=== PATIENT | female | born 1965 | race Hispanic/Latino ===

== ENCOUNTER 2017-02-25 02:27 | Inpatient (IN) | payer MEDICARE, MEDICAID ==
[2017-02-25 02:39] VITALS: BMI 25.8
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
--- NOTE | 2017-02-25 07:48 | PCM.BM ---
<Marga Goldman - Last Filed: 02/25/17 07:45> Treatment Plan Problems - Problems identified on initial assessmt altered thought process Date Initiated: 02/25/17 Time Initiated: 04:00 Assessment reference: NA Status: Active Priority: 1 Agitated behavior Date Initiated: 02/25/17 Time Initiated: 04:00 Assessment reference: NA Status: Active <Rodrigue Turner - Last Filed: 02/25/17 13:18> Treatment Plan Problems - Problems identified on initial assessmt Agitated behavior Date resolved: 02/25/17 Anxiety related to substance abuse Date Initiated: 02/25/17 Time Initiated: 13:19 Assessment reference: NA Status: Active Priority: 2 <Mary Serrano - Last Filed: 02/25/17 14:13> - Diagnosis (1) Depression Status: Chronic Interventions: Psychoeducation Psychopharmacology/adjustment of medications as needed/ monitoring possible side effects Evaluate pt on daily basis Compliance with medications and follow up appointments Suicide and homicide risk assessment and prevention Relapse prevention Reduction of symptoms Improve functional status Family involvement As outpatient: cognitive behavioral therapy 02/25/17 14:12 (2) Drug induced hallucinations Status: Acute Interventions: Provide safety Monitoring for presence of withdrawal symptoms Medical detoxification if necessary Pharmacotherapy for alcohol/benzos/opioid dependence Maintaining sobriety Relapse prevention Possible rehabilitation Motivational interviewing 12-step programs: AA meetings Pt will be seen by medical team as needed Medications will be confirmed and resumed Additional consultation by specialists as needed Lab work as needed (CBC, CMP, TSH, free T4, UA, Urine test for females as needed) CXR as needed EKG Physical therapy valuation as needed <Maria Teresa Sweet - Last Filed: 02/26/17 16:32> - Diagnosis (1) Unspecified psychosis Status: Acute Interventions: 02/26/17 16:23 Psychoeducation/psychotherapy Psychopharmacology/adjustment of medications as needed/ monitoring possible side effects Evaluate pt on daily basis Compliance with medications and follow up appointments Long acting medication if pt is noncompliant with pill form Suicide and homicide risk assessment and prevention, coping strategies, safety plan Relapse prevention Reduction of symptoms Improve functional status Possible assertive community treatment Cognitive behavioral therapy Family involvement Possible social skill training as outpatient (2) Substance or medication-induced psychotic disorder Status: Acute Interventions: 02/26/17 16:23 Pt will be seen by medical team as needed Medications will be confirmed and resumed Additional consultation by specialists as needed Lab work as needed (CBC, CMP, TSH, free T4, UA, Urine test for females as needed) CXR as needed EKG Physical therapy evaluation as needed <Shelby Jeronimo - Last Filed: 03/01/17 10:59> Family Contact Family involvement: Family/SO is involved Family contact: Patient agrees to contact
[2017-02-25 08:40] LABS: GLUCOSE,FASTING 99 mg/dL (65-110); HDL CHOLESTEROL 54 mg/dL (29-60)
[2017-02-25 08:51] LABS: LDL CHOLESTEROL 51 mg/dL (0-129)
[2017-02-25] MEDS: Divalproex 250 mg DR (BID formulation) PO SCH ×2 (12:49→22:30)
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
[2017-02-26] MEDS: Divalproex 250 mg DR (BID formulation) PO SCH ×2 (09:23→21:19)
[2017-02-26] MEDS ORDERED: Morphine 30 mg SR Tab PO ONE (13:42)
[2017-02-26] MEDS ORDERED: oxyCODONE 30 mg Immediate Release Tab PO ONE (13:42)
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
[2017-02-26] MEDS: Morphine 30 mg SR Tab PO SCH (17:35)
[2017-02-26] MEDS: oxyCODONE 30 mg Immediate Release Tab PO PRN (21:20)
[2017-02-26] MEDS ORDERED: Bacitracin Ointment 30 GM TUBE TOP SCH (22:00)
--- NOTE | 2017-02-27 02:02 | CON ---
DATE: HISTORY OF PRESENT ILLNESS: The patient is a 51-year-old who was found wondering on the street, was confused and disoriented, so was brought to Emergency Room for further evaluation. She was initially admitted in [facility] for confusion and then transferred to [facility] for further management. There is no significant medical history. She denies nausea, vomiting, or diarrhea. No history of chest pain. No shortness of breath. No dizziness. No back pain. No headache. She does have history of back pain. She states she has multiple surgeries done, for that she is on high dose of oxycodone. PAST PSYCHIATRIC HISTORY: Her significant past psych history is bipolar disorder. ALLERGIES: SHE IS NOT ALLERGIC TO ANY MEDICATION. MEDICATIONS AT HOME: She takes oxycodone, but does not know the dose. SOCIAL HISTORY: She states she is single. Lives by herself. Does not work. She is disabled. She currently smoke. She does admits using drugs. REVIEW OF SYSTEMS: She complained of feeling sleepy and lethargic. PHYSICAL EXAMINATION: GENERAL: She is awake and alert and able to answer simple questions. VITAL SIGNS: She is afebrile, pulse 80, respirations 18, and blood pressure 142/76. LUNGS: Bilateral fair airflow. No rhonchi or crackle. HEART: S1 and S2 audible. ABDOMEN: Soft and nontender. No rebound. No guarding. NEUROLOGIC: She is awake, alert, and able to communicate. She has some rash on her forehead and on the upper lip is chapped and excoriated. LABORATORY DATA: Fasting blood sugar is 99, triglyceride 200, and total cholesterol 139. Her TSH is 0.60 and T4 is 1.82. Her RPR is negative. ASSESSMENT: 1. Bipolar disorder. 2. Anxiety disorder. 3. Chronic low back pain. PLAN: Currently, the patient is on multiple psych medication. She will be started on Bactroban. She is on oxycodone 30 mg four times daily p.r.n. as recommended by psychiatrist. Currently, the patient has no active medical issue. Psych medications will be adjusted by psychiatrist. Steve Forman MD
[2017-02-27] MEDS: oxyCODONE 30 mg Immediate Release Tab PO PRN ×2 (06:42→22:49)
[2017-02-27] MEDS: Divalproex 250 mg DR (BID formulation) PO SCH ×2 (09:19→22:00)
[2017-02-27] MEDS: Morphine 30 mg SR Tab PO SCH ×3 (09:19→17:52)
--- NOTE | 2017-02-27 16:43 | CP.PCM.PN ---
Subjective - Date & Time of Evaluation Date of Evaluation: 02/27/17 Time of Evaluation: 16:24 - Subjective Subjective: House Physician Resident Cale Mendes, PGY-2 IM Paged for patient complaining of shooting pain in left arm and chest, but not in acute distress. Charting reviewed, no cardiac history or HTN/HLD/DM noted. Does have active tobacco use hx. Went to examine patient, who was sleeping comfortably on right side in room. No acute distress at rest, or when awakened. Denies family or personal cardiac hx, later amended that her father of a massive NH in his late 70's, but unable to pinpoint when, and denies any cardiac disease risk factors in father (i.e. HTN, HLD, DM). Pain in left arm reproducible on palpation and during muscle strength testing. Muscle strength 5/5 bilaterally in flexion and extension. Tenderness most prominent immediately proximal to lateral left elbow. No masses, fluctuance, erythema, or gross physical abnormality palpated at the site of tenderness. Patient denies chest pain statically or with palpation along left anterior and lateral rib cage. Also denies shortness of breath or painful respirations. Given tobacco abuse hx and unclear family cardiac history, trop and EKG ordered. If both negative, then patient will have ALY score of 0, low cardiac risk, no further workup will be needed. Objective - Vital Signs/Intake and Output Vital Signs (last 24 hours): Temp Pulse Resp BP Pulse Ox 98.6 F 98 H 20 134/96 H 100 02/27/17 07:18 02/27/17 07:18 02/27/17 07:18 02/27/17 07:18 02/25/17 03:04 - Medications Medications: Current Medications Alprazolam (Xanax) 1 mg PO TID KATHARINE PRN Reason: Protocol Last Admin: 02/27/17 12:42 Dose: 1 mg Divalproex Sodium (Depakote Dr (*Bid*)) 250 mg PO AMHS KATHARINE PRN Reason: Protocol Last Admin: 02/27/17 09:19 Dose: 250 mg Haloperidol (Haldol) 3 mg PO Q6 PRN; Protocol PRN Reason: Agitation Last Admin: 02/25/17 04:26 Dose: 3 mg Haloperidol Lactate (Haldol) 3 mg IM Q6 PRN; Protocol PRN Reason: severe agitation Ibuprofen (Motrin Tab) 600 mg PO Q6H PRN PRN Reason: pain Last Admin: 02/26/17 12:58 Dose: 600 mg Lorazepam (Ativan) 1 mg PO Q6 PRN; Protocol PRN Reason: Agitation Last Admin: 02/27/17 06:43 Dose: 1 mg Lorazepam (Ativan) 1 mg IM Q6H PRN; Protocol PRN Reason: severe agitation Morphine Sulfate (Morphine Extended Release Tab) 60 mg PO TID [facility] Last Admin: 02/27/17 12:42 Dose: 60 mg Mupirocin (Bactroban Ointment) 0 gm TOP BID [facility] Last Admin: 02/27/17 09:24 Dose: 1 u Nicotine (Nicoderm Cq) 1 patch TD DAILY [facility] Last Admin: 02/27/17 09:18 Dose: 1 patch Oxycodone HCl (Oxycodone Immediate Release Tab) 30 mg PO QID PRN PRN Reason: Pain, severe (8-10) Last Admin: 02/27/17 06:42 Dose: 30 mg Pregabalin (Lyrica) 100 mg PO TID [facility] Last Admin: 02/27/17 12:42 Dose: 100 mg Quetiapine Fumarate (Seroquel) 100 mg PO HS KATHARINE PRN Reason: Protocol Last Admin: 02/26/17 21:21 Dose: 100 mg Zolpidem Tartrate (Ambien) 5 mg PO HS PRN; Protocol PRN Reason: Insomnia Last Admin: 02/26/17 21:19 Dose: 5 mg - Constitutional Appears: Non-toxic, No Acute Distress, Older Than Stated Age - Head Exam Head Exam: ATRAUMATIC, NORMAL INSPECTION, NORMOCEPHALIC - Eye Exam Eye Exam: EOMI, Normal appearance. absent: Conjunctival injection, Scleral icterus - ENT Exam ENT Exam: Mucous Membranes Moist - Neck Exam Neck Exam: Full ROM - Respiratory Exam Respiratory Exam: Clear to Ausculation Bilateral, NORMAL BREATHING PATTERN. absent: Accessory Muscle Use, Chest Wall Tenderness, Decreased Breath Sounds, Prolonged Expiratory Phase, Rales, Rhonchi, Wheezes, Respiratory Distress - Cardiovascular Exam Cardiovascular Exam: REGULAR RHYTHM, RRR, +S1, +S2. absent: Bradycardia, Tachycardia, Irregular Rhythm, JVD, +S4 - Extremities Exam Additional comments: +2 radial pulses 5/5 bilateral UE strength no gross deformity palpated in left UE at site of tenderness to palpation ( proximal to lateral elbow) - Neurological Exam Neurological Exam: Alert, Awake - Psychiatric Exam Psychiatric exam: Normal Affect, Normal Mood - Skin Skin Exam: Dry, Intact, Normal Color, Warm Assessment and Plan - Assessment and Plan (Free Text) Assessment: EKG and trop ordered, will f/u if negative, ALY score of 0, no further workup required likely musculoskeletal pain, already has appropriate pain control with current NSAID and Morphine orders
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
[2017-02-28] MEDS: Morphine 30 mg SR Tab PO SCH ×3 (09:07→17:50)
[2017-02-28] MEDS: Divalproex 250 mg DR (BID formulation) PO SCH ×2 (09:11→21:32)
[2017-02-28] MEDS: oxyCODONE 30 mg Immediate Release Tab PO PRN (11:20)
--- NOTE | 2017-02-28 12:31 | CARD ---
APPROVED REPORT EKG Measurement Heart [id number] <Conclusion> Normal sinus rhythm Normal ECG
[2017-02-28] MEDS ORDERED: oxyCODONE 20 mg Immediate Release Tab PO PRN (13:42)
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
[2017-03-01 07:23] VITALS: O2SAT 20
[2017-03-01] MEDS: Morphine 30 mg SR Tab PO SCH ×3 (08:54→17:53)
--- NOTE | 2017-03-01 10:29 | CON ---
DATE: 03/01/2017 HISTORY OF PRESENT ILLNESS: The patient is being seen on 03/01/[address] Forman and Dr. Morel for back pain and having multiple back surgeries and I am seeing her at the bedside in her room 514, bed 1. The patient was asked about back surgery and she said she had back fusion with instrumentation and is scheduled for another back surgery because of her loosened hardware device, but right now, she can move appropriately and can sit up without assistance. There is extremely good range of motion of her hips, knees, and lumbosacral spine. She can sit up well and even can bend forward. She does have multiple truncal laxity, which contributes to her good range of motion of her back and her joints of upper and lower extremities. I palpated the scar, which goes proximally from the upper lumbar spine down to the sacrum, fusion with instrumentation of her lumbar spine and states she can get up okay and walk with a walker, but she likes to use a wheelchair. We will try to get her physical therapy for post-laminectomy syndrome and post-fusion of her lumbar spine to keep her mobile, so we are going to order an x-ray of her lumbar spine and pelvis and write for therapy for back-stabilizing exercises, and ambulation with a walker for her post-laminectomy syndrome and post-fusion surgery of her lumbar spine. Waqas Rivera DO
--- NOTE | 2017-03-01 10:38 | PCM.PYCHPN ---
Psychiatric Progress Note - Psychiatric Progress Note Patient seen today, length of contact: 25 minutes Patient Chief Complaint: "feeling better than I have in ages, I don't want to disappear anymore" Problems Identified/Issues Discussed: I reviewed assessment and recent notes. I met with patient at bedside. She is superficially cooperative and oriented x3. Grooming is good. Affect is elevated and patient is quite talkative but not pressured. She reports "feeling better than I have in ages, I don't want to disappear anymore". Reports feeling hopeful and "in control over my brain". She recalls having hallucinations prior to admission however these have remitted. Her thought process is coherent but overinclusive and scattered/tangential at times. She is pleasant and thankful. Feels the medications are working well for her and she denies side effects, discomfort or pain. Staff notes indicate that patient has been in fair but tenuous control. Can be intrusive, dramatic and manipulative. She has required redirection for these reasons. There were no major behavioral issues overnight. Diagnostic Results: Psychosis NOS Rule out substance-induced psychosis, patient was on higher dose of pain medication most likely patient was not taking medication as it was prescribed Rule out bipolar disorder Medication Change: Yes (Seroquel increased) Medical Record Reviewed: Yes Mental Status Examination - Cognitive Function Orientation: Person, Situation Memory: Impaired Attention: Poor Concentration: Poor Association: Loose Fund of Knowledge: Poor - Mood Mood: Euphoric (elevated, not pressured) - Affect Affect: Broad - Speech Speech: Appropriate - Formal Thought Process Formal Thought Process: Hallucinations (denies), Delusions (none elicited), Paranoia, Loosening of associations, Circumstantial - Suicidal Ideation Suicidal Ideation: No - Homicidal Ideation Homicidal Ideation: No Goal/Treatment Plan - Goal/Treatment Plan Need for Continued Stay: Remain at risks for inpatient hospitalization, Severe depression anxiety, Discharge may exacerbated symptoms, Severe functional impairment Progress Toward Problem(s) and Goals/Treatment Plan: * c/w current tx and plan * c/w Depakote 500 mg po AM/HS, check VPA level * c/w Seroquel 200 mg HS * c/w xanax 1 mg po TID for anxiety * No new labs thus far * Vitals reviewed and noted below: Selected Entries 02/27/17 02/27/17 02/28/17 07:18 18:00 07:16 Temperature 98.6 F 97.9 F Pulse Rate 98 H 82 86 Respiratory 20 20 Rate Blood Pressure 134/96 H 124/79 138/76 02/28/17 16:00 Temperature Pulse Rate 82 Respiratory Rate Blood Pressure 117/82 Estimated Date of D/C: 03/08/17 (we'll monitor patient closely)
[2017-03-01] MEDS: Divalproex 250 mg DR (BID formulation) PO SCH ×2 (12:10→21:19)
--- NOTE | 2017-03-01 12:19 | RAD ---
PROCEDURE: Radiographs of the pelvis. HISTORY: lt hip rain fusion sacrum COMPARISON: None. FINDINGS: BONES: Pelvic Bones: Unremarkable. Hips: Grossly unremarkable. JOINTS: Sacroiliac Joints: Unremarkable. Pubic Symphysis: Unremarkable. OTHER FINDINGS: None. IMPRESSION: Unremarkable radiographs of the pelvis.
--- NOTE | 2017-03-01 12:21 | RAD ---
PROCEDURE: Radiographs of the Lumbar Spine. HISTORY: back fusion COMPARISON: No prior. FINDINGS: BONES: Normal alignment. No listhesis. No fracture. DISC SPACES: There has been intradiscal and intrapedicular fusion at L3-4 and L4-5. There is disc degeneration at L1-2 and L2-3. OTHER FINDINGS: None. IMPRESSION: There has been intradiscal and intrapedicular fusion at L3-4 and L4-5. There is disc degeneration at L1-2 and L2-3.
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
--- NOTE | 2017-03-02 08:59 | PCM.PYCHPN ---
Psychiatric Progress Note - Psychiatric Progress Note Patient seen today, length of contact: 25 minutes Patient Chief Complaint: "feeling better than I have in ages, I don't want to disappear anymore" Problems Identified/Issues Discussed: I reviewed recent notes and met with patient at bedside. She is superficially cooperative and oriented x3. Grooming is good. Affect is still elevated and patient is talkative but not pressured. She still reports improvement in symptoms and feels very hopeful. She recalls having hallucinations prior to admission however these have remitted. Her thought process is coherent but overinclusive and tangential. She is pleasant and thankful. Feels the medications are "great and working well". She denies new side effects, discomfort or pain. Staff notes indicate that patient has been in fair but tenuous control. Can be intrusive, dramatic and manipulative. She has required redirection for these reasons. Nonetheless she is appearing less hyper and demanding than before. There were no major behavioral issues overnight. Diagnostic Results: Psychosis NOS Rule out substance-induced psychosis, patient was on higher dose of pain medication most likely patient was not taking medication as it was prescribed Rule out bipolar disorder Medication Change: Yes (Seroquel increased) Medical Record Reviewed: Yes Mental Status Examination - Cognitive Function Orientation: Person, Situation Memory: Impaired Attention: WNL Concentration: Poor Association: Loose Fund of Knowledge: Poor - Mood Mood: Euphoric (elevated, not pressured) - Affect Affect: Broad - Speech Speech: Appropriate - Formal Thought Process Formal Thought Process: Hallucinations (denies), Delusions (none elicited), Paranoia (improving), Loosening of associations, Circumstantial - Suicidal Ideation Suicidal Ideation: No - Homicidal Ideation Homicidal Ideation: No Goal/Treatment Plan - Goal/Treatment Plan Need for Continued Stay: Remain at risks for inpatient hospitalization, Severe depression anxiety, Discharge may exacerbated symptoms, Severe functional impairment Progress Toward Problem(s) and Goals/Treatment Plan: * c/w current tx and plan * c/w Depakote 500 mg po AM/HS. VPA noted below: 03/01/17 12:20 Valproic Acid 75 * c/w Seroquel 200 mg HS * c/w xanax 1 mg po TID for anxiety * Appreciate f/u by Dr. Rivera and Dr. Hart on 03/01/16~please see medical notes for more details. * 03/01/17 Pelvic Xray: wnl. Lumbar Xray: There has been intradiscal and intrapedicular fusion at L3-4 and L4-5. There is disc degeneration at L1-2 and L2-3. * Vitals reviewed and noted below: 03/01/17 03/01/17 03/01/17 07:22 07:24 10:00 Temperature 98.0 F 98.0 F 97.2 F L Pulse Rate 92 H 92 H 76 Respiratory 20 16 Rate Blood Pressure 119/82 Estimated Date of D/C: 03/08/17 (we'll monitor patient closely)
[2017-03-02] MEDS: Morphine 30 mg SR Tab PO SCH ×3 (09:23→18:35)
[2017-03-02] MEDS: Divalproex 250 mg DR (BID formulation) PO SCH ×2 (09:25→21:02)
--- NOTE | 2017-03-02 12:50 | CT ---
PROCEDURE: CT Thoracic Spine without contrast HISTORY: radiculopathy COMPARISON: None. TECHNIQUE: Axial computed tomography images were obtained of the thoracic spine without intravenous contrast. Coronal and sagittal reformatted images were created and reviewed. Radiation dose: Total exam DLP = mGy-cm. This CT exam was performed using one or more of the following dose reduction techniques: Automated exposure control, adjustment of the mA and/or kV according to patient size, and/or use of iterative reconstruction technique. FINDINGS: VERTEBRAE: Unremarkable. No fracture. Normal alignment. DISCS/SPINAL CANAL/NEURAL FORAMINA: Mild lower thoracic disc space narrowing and degenerative disc disease. No significant stenosis. PARASPINAL SOFT TISSUES: Unremarkable. OTHER FINDINGS: Unremarkable. IMPRESSION: Mild lower thoracic disc space narrowing and degenerative disc disease. No significant stenosis.
--- NOTE | 2017-03-02 13:09 | CT ---
PROCEDURE: CT Lumbar Spine without contrast HISTORY: radiculopathy COMPARISON: None. TECHNIQUE: Axial computed tomography images were obtained of the lumbar spine without the use of intravenous contrast. Coronal and sagittal reformatted images were created and reviewed. Radiation dose: Total exam DLP = mGy-cm. This CT exam was performed using one or more of the following dose reduction techniques: Automated exposure control, adjustment of the mA and/or kV according to patient size, and/or use of iterative reconstruction technique. FINDINGS: There is a dextroscoliosis. Patient status post pedicle fixation surgery with laminectomies from L3 through L5. Multilevel severe degenerative disc disease is noted with upper lumbar vacuum disc phenomenon and associated sclerotic changes of the T12 through L1 vertebral bodies. No significant disc herniation or central canal stenosis is observed. There is no significant foraminal stenosis. No gross prevertebral paraspinal soft tissue abnormality is observed. IMPRESSION: Status post L1 through L3 pedicle fixation surgery with laminectomy defects and postsurgical changes. Severe degenerative disc disease and dextroscoliosis. No significant foraminal or central canal stenosis.
[2017-03-03] MEDS: Morphine 30 mg SR Tab PO SCH ×3 (09:17→18:17)
[2017-03-03] MEDS: Divalproex 250 mg DR (BID formulation) PO SCH ×2 (09:18→21:38)
--- NOTE | 2017-03-03 09:29 | PCM.PYCHPN ---
Psychiatric Progress Note - Psychiatric Progress Note Patient seen today, length of contact: 25 minutes Patient Chief Complaint: "feeling better" Problems Identified/Issues Discussed: I reviewed recent notes and met with patient at bedside. She is superficially cooperative and oriented x3. Grooming is good. Affect is still elevated and patient is talkative but not pressured. She still reports improvement in symptoms and feels very hopeful. . She recalls having hallucinations prior to admission however these have remitted. Believes psychiatric medications are working well. Her thought process is coherent, overinclusive and tangential at times. She is pleasant though still complains of pain. She denies new side effects or discomfort. Staff notes indicate that patient has been in fair control. Appears to be drowsy during the day though patient denies. This could be secondary to the effects of her pain medications. Prior staff notes indicate that patient can be intrusive, dramatic and manipulative. She has required redirection and has been improving in this regard over the weekend. Overall, she appears less hyper and demanding than before. Interacting well with staff and peers. There were no major behavioral issues over the weekend Diagnostic Results: Psychosis NOS Rule out substance-induced psychosis, patient was on higher dose of pain medication most likely patient was not taking medication as it was prescribed Rule out bipolar disorder Medication Change: Yes (Seroquel increased) Medical Record Reviewed: Yes Mental Status Examination - Cognitive Function Orientation: Person, Situation Memory: Impaired Attention: WNL Concentration: Poor Association: Loose Fund of Knowledge: Poor - Mood Mood: Euphoric (elevated, not pressured) - Affect Affect: Broad - Speech Speech: Appropriate - Formal Thought Process Formal Thought Process: Hallucinations (denies), Delusions (none elicited), Paranoia (improving), Loosening of associations (improving), Circumstantial - Suicidal Ideation Suicidal Ideation: No - Homicidal Ideation Homicidal Ideation: No Goal/Treatment Plan - Goal/Treatment Plan Need for Continued Stay: Remain at risks for inpatient hospitalization, Severe depression anxiety, Discharge may exacerbated symptoms, Severe functional impairment Progress Toward Problem(s) and Goals/Treatment Plan: * c/w current tx and plan * c/w Depakote 500 mg po AM/HS. VPA noted below: 03/01/17 12:20 Valproic Acid 75 * c/w Seroquel 200 mg HS * c/w xanax 1 mg po TID for anxiety * Vitals reviewed and noted below: 03/01/17 03/01/17 03/01/17 07:22 07:24 10:00 Temperature 98.0 F 98.0 F 97.2 F L Pulse Rate 92 H 92 H 76 Respiratory 20 16 Rate Blood Pressure 119/82 03/02/17 08:18 Temperature Pulse Rate 86 Respiratory 20 Rate Blood Pressure 134/80 * Appreciate f/u by Dr. Rivera and Dr. Hart on 03/01/16~please see medical notes for more details. IMAGING STUDY RESULTS * 03/01/17 Pelvic Xray: wnl. * 03/01/17 Lumbar Xray: There has been intradiscal and intrapedicular fusion at L3 -4 and L4-5. There is disc degeneration at L1-2 and L2-3. * 03/02/[address]: unremarkable. No fracture. Normal alignment. * 03/02/[address]: There is dextroscoliosis. Patient status post pedicle fixation surger with laminiectomies from L3 through L5. Multilevel severe degenerative disc disease is noted with upper lumbar vacuum disc phenomenom and associated sclerotic changes of the T12 through L1 vertebral bodies. No significant disc herniation or central canal. Estimated Date of D/C: 03/08/17 (we'll monitor patient closely)
--- NOTE | 2017-03-04 08:46 | CP.PCM.PN ---
Subjective - Date & Time of Evaluation Date of Evaluation: 03/04/17 Time of Evaluation: 08:42 - Subjective Subjective: Ms. Crook was seen and examined at the bedside. She is alert, but very sleepy. She denies any pain, headache, dizziness, lightheadedness, nausea, or vomiting. She states of receiving her routine pain medications which made her more sleepy. Ct of the lumbar showed severe degenerative disc disease and CT of the thoracic also showed degenerative disease. There was no untoward events overnight. Objective - Vital Signs/Intake and Output Vital Signs (last 24 hours): Temp Pulse Resp BP Pulse Ox 97.6 F 88 18 131/73 20 L 03/04/17 06:53 03/04/17 06:53 03/04/17 06:53 03/04/17 06:53 03/01/17 07:22 - Medications Medications: Current Medications Alprazolam (Xanax) 1 mg PO TID [facility] PRN Reason: Protocol Last Admin: 03/03/17 18:30 Dose: Not Given Divalproex Sodium (Depakote Dr (*Bid*)) 500 mg PO AMHS [facility] PRN Reason: Protocol Last Admin: 03/03/17 21:38 Dose: 500 mg Haloperidol (Haldol) 3 mg PO Q6 PRN; Protocol PRN Reason: Agitation Last Admin: 03/03/17 21:38 Dose: 3 mg Haloperidol Lactate (Haldol) 3 mg IM Q6 PRN; Protocol PRN Reason: severe agitation Ibuprofen (Motrin Tab) 600 mg PO Q6H PRN PRN Reason: pain Last Admin: 02/26/17 12:58 Dose: 600 mg Lorazepam (Ativan) 1 mg PO Q6 PRN; Protocol PRN Reason: Agitation Last Admin: 03/01/17 15:27 Dose: 1 mg Lorazepam (Ativan) 1 mg IM Q6H PRN; Protocol PRN Reason: severe agitation Morphine Sulfate (Morphine Extended Release Tab) 60 mg PO TID [facility] Last Admin: 03/03/17 18:17 Dose: Not Given Mupirocin (Bactroban Ointment) 0 gm TOP BID [facility] Last Admin: 03/03/17 16:16 Dose: 1 u Nicotine (Nicoderm Cq) 1 patch TD DAILY [facility] Last Admin: 03/03/17 09:19 Dose: 1 patch Oxycodone HCl (Oxycodone Immediate Release Tab) 20 mg PO TID PRN PRN Reason: Pain, severe (8-10) Pregabalin (Lyrica) 100 mg PO TID [facility] Last Admin: 03/03/17 18:16 Dose: Not Given Quetiapine Fumarate (Seroquel) 200 mg PO HS [facility] PRN Reason: Protocol Last Admin: 03/03/17 21:38 Dose: 200 mg Zolpidem Tartrate (Ambien) 5 mg PO HS PRN; Protocol PRN Reason: Insomnia Last Admin: 03/03/17 21:38 Dose: 5 mg - Constitutional Appears: No Acute Distress - Head Exam Head Exam: NORMAL INSPECTION - Neurological Exam Neurological Exam: Awake Neuro motor strength exam: Left Upper Extremity: 5, Right Upper Extremity: 5, Left Lower Extremity: 5, Right Lower Extremity: 5 Additional comments: Pt is leepy , but able to follow simple commands such as raising her bilateral upper and lower extremities. Assessment and Plan (1) Lumbar back pain with radiculopathy affecting left lower extremity Assessment & Plan: Case discussed with Dr. Hart, continue all current medical regimen and please refer to her primary physician the degenerative disease of her lumbar and thoracic areas. Status: Acute (2) Lumbar back pain with radiculopathy affecting right lower extremity Status: Acute
[2017-03-04] MEDS: Morphine 30 mg SR Tab PO SCH ×3 (09:46→17:24)
[2017-03-04] MEDS: Divalproex 250 mg DR (BID formulation) PO SCH ×2 (09:46→23:49)
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
[2017-03-04] MEDS: QUEtiapine 300 mg XR Tab PO SCH (23:49)
[2017-03-05] MEDS: Divalproex 250 mg DR (BID formulation) PO SCH ×2 (10:04→21:25)
[2017-03-05] MEDS: Morphine 30 mg SR Tab PO SCH ×3 (12:14→17:39)
[2017-03-05] MEDS ORDERED: oxyCODONE 10 mg Immediate Release Tab PO PRN (16:33)
--- NOTE | 2017-03-05 16:36 | PCM.BM ---
Treatment Plan Problems - Problems identified on initial assessmt altered thought process Date Initiated: 02/25/17 Time Initiated: 04:00 Date resolved: 03/05/17 Assessment reference: NA Status: Monitor Priority: 1 Agitated behavior Date Initiated: 02/25/17 Time Initiated: 04:00 Date resolved: 03/04/17 Assessment reference: NA Status: Monitor Anxiety related to substance abuse Date Initiated: 03/04/17 Time Initiated: 11:00 Assessment reference: NA Status: Active Priority: 2 - Milieu Protocol Milieu Narrative: Milieu/structure/supportive therapy Medical consult appreciated, see medical team note for more detailed info SW consultation for discharge plan and social issues Med management will increase XL Seroquel 300 mg at the night time for psychosis and mood stabilization Depakote will be continued for mood stabilization to 500 twice a day Xanax was resumed 1 mg 3 times a day scheduled When necessary of Ativan in case or anxiety The medications confirmed by pharmacy and resumed morphine ED 60mg po tid scheduled oxycodone will be decreased to 20mg po tid (pt was on 30mg po qid prn) For insomnia Ambien 5 mg as needed Medical consultation was called, appreciated PT consult appreciated Neurology consult appreciated Pain mng consult was called, but patient was not evaluated by them Orthopedic consult appreciated We'll consider pain management consultation physical therapy evaluation Family involvement Follow up on labs Will monitor closely SW evaluation for d/c planning Pt was educated about risk/benefits and alternatives of medications, coping strategies (safety plan, suicide prevention), relapse prevention, importance of follow up with psychiatrist and therapist, stay away from drugs/alcohol/smoking Family Contact Family involvement: Family/SO is involved Family contact: Patient agrees to contact Discharge/Continuing Care - Treatment Team Participation Patient/Family/SO Statement: Milieu/structure/supportive therapy Medical consult appreciated, see medical team note for more detailed info SW consultation for discharge plan and social issues Med management will increase XL Seroquel 300 mg at the night time for psychosis and mood stabilization Depakote will be continued for mood stabilization to 500 twice a day Xanax was resumed 1 mg 3 times a day scheduled When necessary of Ativan in case or anxiety The medications confirmed by pharmacy and resumed morphine ED 60mg po tid scheduled oxycodone will be decreased to 20mg po tid (pt was on 30mg po qid prn) For insomnia Ambien 5 mg as needed Medical consultation was called, appreciated PT consult appreciated Neurology consult appreciated Pain mng consult was called, but patient was not evaluated by them Orthopedic consult appreciated We'll consider pain management consultation physical therapy evaluation Family involvement Follow up on labs Will monitor closely SW evaluation for d/c planning Pt was educated about risk/benefits and alternatives of medications, coping strategies (safety plan, suicide prevention), relapse prevention, importance of follow up with psychiatrist and therapist, stay away from drugs/alcohol/smoking Treatment Plan Review - Problem altered thought process Time Initiated: 04:00 Agitated behavior Time Initiated: 04:00 Anxiety related to substance abuse Time Initiated: 13:19
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
[2017-03-05] MEDS: QUEtiapine 300 mg XR Tab PO SCH (21:25)
--- NOTE | 2017-03-06 07:37 | CP.PCM.PN ---
Subjective - Date & Time of Evaluation Date of Evaluation: 03/06/17 Time of Evaluation: 07:33 - Subjective Subjective: Ms. Crook was seen and examined at the bedside. She is alert, responsive to all stimuli, but very sleepy. She is able to answer questions appropriately. She denies any headache, dizziness, numbness, weakness. She uses wheelchair to mobilize around the unit, but able to walk to the bathroom with steady gait with kyphosis posture. CT of the lumbar and thoracic showed mild thoracic area narrowing, no significant stenosis, status post L1-L3 pedicle fixation surgery with laminectomy defects and processed surgical changes. Severe degenerative disc disease and dextroscoliosis, no significant foraminal or central canal stenosis. There was no untoward events overnight. Objective - Vital Signs/Intake and Output Vital Signs (last 24 hours): Temp Pulse Resp BP Pulse Ox 97.6 F 72 18 97/61 L 20 L 03/05/17 10:00 03/05/17 10:00 03/05/17 10:00 03/05/17 07:13 03/01/17 07:22 - Medications Medications: Current Medications Alprazolam (Xanax) 1 mg PO TID [facility] PRN Reason: Protocol Last Admin: 03/05/17 17:40 Dose: 1 mg Divalproex Sodium (Depakote Dr (*Bid*)) 500 mg PO [facility] PRN Reason: Protocol Last Admin: 03/05/17 21:25 Dose: 500 mg Haloperidol (Haldol) 3 mg PO Q6 PRN; Protocol PRN Reason: Agitation Last Admin: 03/03/17 21:38 Dose: 3 mg Haloperidol Lactate (Haldol) 3 mg IM Q6 PRN; Protocol PRN Reason: severe agitation Ibuprofen (Motrin Tab) 600 mg PO Q6H PRN PRN Reason: pain Last Admin: 03/05/17 23:40 Dose: 600 mg Lorazepam (Ativan) 1 mg PO Q6 PRN; Protocol PRN Reason: Agitation Last Admin: 03/01/17 15:27 Dose: 1 mg Lorazepam (Ativan) 1 mg IM Q6H PRN; Protocol PRN Reason: severe agitation Morphine Sulfate (Morphine Extended Release Tab) 60 mg PO TID [facility] Last Admin: 03/05/17 17:39 Dose: 60 mg Mupirocin (Bactroban Ointment) 0 gm TOP BID [facility] Last Admin: 03/05/17 17:39 Dose: 1 u Nicotine (Nicoderm Cq) 1 patch TD DAILY [facility] Last Admin: 03/05/17 08:28 Dose: 1 patch Oxycodone HCl (Oxycodone Immediate Release Tab) 10 mg PO TID PRN PRN Reason: Pain, severe (8-10) Pregabalin (Lyrica) 100 mg PO TID [facility] Last Admin: 03/05/17 17:40 Dose: 100 mg Quetiapine Fumarate (Seroquel Xr) 300 mg PO HS [facility] PRN Reason: Protocol Last Admin: 03/05/17 21:25 Dose: 300 mg Zolpidem Tartrate (Ambien) 5 mg PO HS PRN; Protocol PRN Reason: Insomnia Last Admin: 03/05/17 21:25 Dose: 5 mg - Constitutional Appears: No Acute Distress - Head Exam Head Exam: NORMAL INSPECTION - Neurological Exam Neurological Exam: Alert, Awake Neuro motor strength exam: Left Upper Extremity: 4, Right Upper Extremity: 4, Left Lower Extremity: 4, Right Lower Extremity: 4 Additional comments: Neurological unchanged from previous examination. Assessment and Plan (1) Lumbar back pain with radiculopathy affecting left lower extremity Assessment & Plan: Case discussed with Dr. Hart, continue all current medical regimen. There is no new recommendation from neurology and refer to primary regarding her degenerative disease in her lumbar and thoracic. Status: Acute (2) Lumbar back pain with radiculopathy affecting right lower extremity Status: Acute
[2017-03-06] MEDS: Morphine 30 mg SR Tab PO SCH ×3 (08:22→18:43)
[2017-03-06] MEDS: Divalproex 250 mg DR (BID formulation) PO SCH ×2 (09:27→21:35)
[2017-03-06] MEDS ORDERED: oxyCODONE 10 mg Immediate Release Tab PO PRN (16:45)
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
[2017-03-06] MEDS: QUEtiapine 300 mg XR Tab PO SCH (21:35)
[2017-03-07] MEDS: Morphine 30 mg SR Tab PO SCH ×3 (08:12→17:45)
[2017-03-07] MEDS: Divalproex 250 mg DR (BID formulation) PO SCH ×2 (09:50→21:00)
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
[2017-03-07 17:01] LABS: HEMOGLOBIN 11.1 g/dL (12.0-16.0); MEAN CELL VOLUME 95.2 fl (80.0-105.0); MEAN CORPUSCULAR HEMOGLOBIN 31.3 pg (25.0-35.0); MEAN CORPUSCULAR HGB CONC 32.8 g/dl (31.0-37.0); MEAN PLATELET VOLUME 9.8 fl (7.0-11.0); RBC 3.55 10^6/uL (3.5-6.1); RED CELL DISTRIBUTION WIDTH 14.4 % (11.5-14.5); WHITE BLOOD COUNT 4.7 10^3/ul (4.5-11.0)
[2017-03-07 17:07] LABS: ALB/GLOB RATIO 1.3 (1.1-1.8); ALBUMIN 3.6 g/dL (3.0-4.8); ALT/SGPT 23 U/L (7-56); AST/SGOT 24 U/L (14-36); BLOOD UREA NITROGEN 14 mg/dL (7-21); CALCIUM 9.4 mg/dL (8.4-10.5); GFR AFRICAN-AMERICAN > 60; GFR NON-AFRICAN AMERICAN > 60
[2017-03-07 17:44] LABS: URINE BILIRUBIN NEGATIVE (NEGATIVE); URINE BLOOD NEGATIVE (NEGATIVE); URINE GLUCOSE (UA) NEGATIVE (NEGATIVE); URINE LEUKOCYTE ESTERASE NEGATIVE Leu/uL (NEGATIVE); URINE NITRATE NEGATIVE (NEGATIVE); URINE PROTEIN NEGATIVE mg/dL (<30 mg/dL); URINE UROBILINOGEN 0.2 E.U./dL (<1 E.U./dL)
[2017-03-07 17:47] LABS: URINE APPEARANCE CLEAR (CLEAR); URINE COLOR YELLOW (YELLOW)
[2017-03-07] MEDS: QUEtiapine 300 mg XR Tab PO SCH (20:59)
[2017-03-08] MEDS: Morphine 30 mg SR Tab PO SCH ×3 (07:04→22:39)
[2017-03-08 08:09] LABS: HEMOGLOBIN 11.8 g/dL (12.0-16.0); MEAN CELL VOLUME 94.5 fl (80.0-105.0); MEAN CORPUSCULAR HEMOGLOBIN 30.7 pg (25.0-35.0); MEAN CORPUSCULAR HGB CONC 32.5 g/dl (31.0-37.0); RBC 3.84 10^6/uL (3.5-6.1); RED CELL DISTRIBUTION WIDTH 14.4 % (11.5-14.5); WHITE BLOOD COUNT 8.5 10^3/ul (4.5-11.0)
[2017-03-08 08:34] LABS: ALB/GLOB RATIO 1.3 (1.1-1.8); ALBUMIN 3.7 g/dL (3.0-4.8); ALT/SGPT 33 U/L (7-56); AST/SGOT 30 U/L (14-36); BLOOD UREA NITROGEN 16 mg/dL (7-21); CALCIUM 9.1 mg/dL (8.4-10.5); GFR AFRICAN-AMERICAN > 60; GFR NON-AFRICAN AMERICAN > 60
--- NOTE | 2017-03-08 08:41 | CP.PCM.PN ---
Subjective - Date & Time of Evaluation Date of Evaluation: 03/08/17 Time of Evaluation: 08:37 - Subjective Subjective: Ms. Crook was seen and examined in the activity room. She is alert, but very sleepy and hallucinate that her mother is telling her something. She denies any headache, blurred vision. She states that she had a dose of Morphine for her generalized pain. She denies any SOB, and unable to follow simple commands due to her current mental state. According to the staff, she knows her medication timing and complains of pain. She is able to move around the unit with the wheelchair independently. Objective - Vital Signs/Intake and Output Vital Signs (last 24 hours): Temp Pulse Resp BP Pulse Ox 97.4 F L 93 H 20 110/73 20 L 03/07/17 07:12 03/07/17 16:00 03/07/17 07:12 03/07/17 16:00 03/01/17 07:22 - Medications Medications: Current Medications Alprazolam (Xanax) 0.5 mg PO TID [facility] Last Admin: 03/07/17 17:44 Dose: 0.5 mg Divalproex Sodium (Depakote Dr (*Bid*)) 500 mg PO AMHS [facility] PRN Reason: Protocol Last Admin: 03/07/17 21:00 Dose: 500 mg Haloperidol (Haldol) 3 mg PO Q6 PRN; Protocol PRN Reason: Agitation Last Admin: 03/03/17 21:38 Dose: 3 mg Haloperidol Lactate (Haldol) 3 mg IM Q6 PRN; Protocol PRN Reason: severe agitation Ibuprofen (Motrin Tab) 600 mg PO Q6H PRN PRN Reason: pain Last Admin: 03/05/17 23:40 Dose: 600 mg Lorazepam (Ativan) 1 mg PO Q6 PRN; Protocol PRN Reason: Agitation Last Admin: 03/06/17 23:12 Dose: 1 mg Lorazepam (Ativan) 1 mg IM Q6H PRN; Protocol PRN Reason: severe agitation Morphine Sulfate (Morphine Extended Release Tab) 60 mg PO TID [facility] Last Admin: 03/08/17 07:04 Dose: 60 mg Mupirocin (Bactroban Ointment) 0 gm TOP BID [facility] Last Admin: 03/07/17 17:46 Dose: 1 applic Nicotine (Nicoderm Cq) 1 patch TD DAILY [facility] Last Admin: 03/07/17 11:01 Dose: 1 patch Oxycodone HCl (Oxycodone Immediate Release Tab) 5 mg PO TID PRN PRN Reason: PAIN,SEVERE [8-10] Pregabalin (Lyrica) 100 mg PO TID [facility] Last Admin: 03/07/17 17:46 Dose: 100 mg Quetiapine Fumarate (Seroquel Xr) 300 mg PO HS [facility] PRN Reason: Protocol Last Admin: 03/07/17 20:59 Dose: 300 mg Zolpidem Tartrate (Ambien) 5 mg PO HS PRN; Protocol PRN Reason: Insomnia Last Admin: 03/07/17 21:00 Dose: 5 mg - Labs Labs: 03/08/17 08:00 03/08/17 08:00 - Constitutional Appears: No Acute Distress - Head Exam Head Exam: NORMAL INSPECTION - Neurological Exam Neurological Exam: Awake Neuro motor strength exam: Left Upper Extremity: 3, Right Upper Extremity: 3, Left Lower Extremity: 3, Right Lower Extremity: 3 Additional comments: She isvery sleepy and unable to follow simple commands. Assessment and Plan (1) Lumbar back pain with radiculopathy affecting left lower extremity Assessment & Plan: Case discussed with Dr. Hart, continue all current medical regimen and to do CT of the head without contrast if the mental status worsen. Status: Acute (2) Lumbar back pain with radiculopathy affecting right lower extremity Status: Acute
[2017-03-08] MEDS: Divalproex 250 mg DR (BID formulation) PO SCH ×2 (10:33→22:38)
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
[2017-03-08] MEDS: QUEtiapine 300 mg XR Tab PO SCH (22:41)
[2017-03-09] MEDS: oxyCODONE 5 mg Immediate Release Tab PO PRN (00:01)
[2017-03-09] MEDS: Morphine 30 mg SR Tab PO SCH ×3 (09:08→21:39)
[2017-03-09] MEDS: Divalproex 250 mg DR (BID formulation) PO SCH ×2 (09:10→21:29)
--- NOTE | 2017-03-09 09:28 | PCM.PYCHPN ---
Psychiatric Progress Note - Psychiatric Progress Note Patient seen today, length of contact: 25 min Patient Chief Complaint: "feeling better" Problems Identified/Issues Discussed: I reviewed recent notes and met with patient at bedside. She is superficially cooperative and oriented x3. Grooming is good. Affect is still elevated and patient is talkative but not pressured. She still reports improvement in symptoms and feels hopeful. She continues to deny having any hallucinations. Feels psychiatric medications are working well and denies side effects. Her thought process is fairly coherent though still overinclusive and tangential at times. She is pleasant and denies any new side effects or discomfort. Staff notes indicate that patient can still be talkative, loud and intrusive. Has required limit-setting. I reviewed Dr. Sweet's recent medication changes due to patient's sedation on the unit. Patient denies feeling sedated during the day, indicates slurring is secondary to dry mouth and having dentures. Will continue to follow. Diagnostic Results: Psychosis NOS Rule out substance-induced psychosis, patient was on higher dose of pain medication most likely patient was not taking medication as it was prescribed Rule out bipolar disorder r/o delirium Medication Change: Yes (oxycodone was decrased, xanax decresaed, morphine decreased) Medical Record Reviewed: Yes Mental Status Examination - Cognitive Function Orientation: Person, Place, Situation Memory: Impaired Attention: WNL Concentration: Poor (today was poor) Association: Loose (today was poor) Fund of Knowledge: Poor - Mood Mood: Other (feeling better) - Affect Affect: Broad - Speech Speech: Appropriate - Formal Thought Process Formal Thought Process: Hallucinations (patient denies hallucinations), Circumstantial - Suicidal Ideation Suicidal Ideation: No - Homicidal Ideation Homicidal Ideation: No Goal/Treatment Plan - Goal/Treatment Plan Need for Continued Stay: Remain at risks for inpatient hospitalization, Severe depression anxiety, Discharge may exacerbated symptoms, Severe functional impairment Progress Toward Problem(s) and Goals/Treatment Plan: * c/w current tx and plan * c/w Depakote 500 mg po AM/HS. VPA noted below: 03/01/17 03/06/17 12:20 08:00 Valproic Acid 75 66 * c/w Seroquel XR 300 mg HS * c/w xanax 0.5 mg po bid prn for anxiety * c/w ambien 5 mg HS prn: insomnia * Vitals reviewed and noted below: 03/07/17 03/07/17 03/08/17 07:12 16:00 10:00 Temperature 97.4 F L 97.2 F L Pulse Rate 92 H 93 H 78 Respiratory 20 18 Rate Blood Pressure 115/81 110/73 Estimated Date of D/C: 03/11/17 (we'll monitor patient closely)
[2017-03-09] MEDS: QUEtiapine 300 mg XR Tab PO SCH (21:29)
--- NOTE | 2017-03-10 09:06 | PCM.PYCHPN ---
Psychiatric Progress Note - Psychiatric Progress Note Patient seen today, length of contact: 25 min Patient Chief Complaint: "feeling better" Problems Identified/Issues Discussed: I reviewed recent notes and met with patient at bedside. She is superficially cooperative and oriented x3. Grooming remains good. Affect is full range and patient is talkative but not pressured. She still reports improvement in symptoms and denies depression or hallucinations. Believes psychiatric medications are beneficial and she has been sleeping well. Her thought process is still coherent and overinclusive however she can communicate needs well. She is pleasant and denies any new side effects or discomfort. Staff notes indicate that patient can still be talkative, loud and intrusive. Has required limit-setting. I reviewed Dr. Sweet's recent medication changes due to patient's sedation on the unit. Staff have noted increased daytime alertness after pain medication doses were decreased. Patient's mother also feel patient is doing a lot better and would like patient to be discharged soon. Diagnostic Results: Psychosis NOS Rule out substance-induced psychosis, patient was on higher dose of pain medication most likely patient was not taking medication as it was prescribed Rule out bipolar disorder r/o delirium Medication Change: Yes (oxycodone was decrased, xanax decresaed, morphine decreased) Medical Record Reviewed: Yes Mental Status Examination - Cognitive Function Orientation: Person, Place, Situation Memory: Impaired Attention: WNL Concentration: Poor (today was poor) Association: Loose (today was poor) Fund of Knowledge: Poor - Mood Mood: Other (feeling better) - Affect Affect: Broad - Speech Speech: Appropriate - Formal Thought Process Formal Thought Process: Hallucinations (patient denied hallucinations all weekend), Circumstantial - Suicidal Ideation Suicidal Ideation: No - Homicidal Ideation Homicidal Ideation: No Goal/Treatment Plan - Goal/Treatment Plan Need for Continued Stay: Remain at risks for inpatient hospitalization, Severe depression anxiety, Discharge may exacerbated symptoms, Severe functional impairment Progress Toward Problem(s) and Goals/Treatment Plan: * c/w current tx and plan * c/w Depakote 500 mg po AM/HS. VPA noted below: 03/01/17 03/06/17 12:20 08:00 Valproic Acid 75 66 * c/w Seroquel XR 300 mg HS * c/w xanax 0.5 mg po bid prn for anxiety * c/w ambien 5 mg HS prn: insomnia * Vitals reviewed and noted below: 03/08/17 03/09/17 03/09/17 10:00 08:42 10:00 Temperature 97.2 F L 98.1 F 97.8 F Pulse Rate 78 90 78 Respiratory 18 16 18 Rate Blood Pressure 100/57 L 100/57 L * No new weekend labs thus far Estimated Date of D/C: 03/11/17 (we'll monitor patient closely)
[2017-03-10] MEDS: Divalproex 250 mg DR (BID formulation) PO SCH ×2 (09:19→21:22)
[2017-03-10] MEDS: oxyCODONE 5 mg Immediate Release Tab PO PRN ×4 (09:20→21:23)
[2017-03-10] MEDS: Morphine 30 mg SR Tab PO SCH ×3 (09:30→21:25)
[2017-03-10] MEDS: QUEtiapine 300 mg XR Tab PO SCH (21:22)
[2017-03-11 07:00] VITALS: BP 136/92; PULSE 84; RESP 20; TEMP 97.8
[2017-03-11] MEDS: Divalproex 250 mg DR (BID formulation) PO SCH (09:19)
[2017-03-11] MEDS: oxyCODONE 5 mg Immediate Release Tab PO PRN ×2 (10:07→13:37)
[2017-03-11] MEDS: Morphine 30 mg SR Tab PO SCH (12:26)
[2017-03-11] MEDS ORDERED: Morphine 30 mg SR Tab PO SCH ×2 (16:00→20:00)
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
== END 2017-03-11 16:23 | disposition home or self-care (01) | DRG 897 ==
LOC: ED 02:27 → ERH 03:00 → PSYC 03:33
PROVIDERS: ADMIT Psychiatry & Neurology Psychiatry; ATTEND Psychiatry & Neurology Psychiatry
PROC: GZ3ZZZZ Medication Management (ICD-10-PCS; principal; 2017-02-25)
DX: F19.959 Other psychoactive substance use, unspecified with psychoactive substance-induced psychotic disorder, unspecified (principal); M41.9 Scoliosis, unspecified; G89.29 Other chronic pain; F32.9 Major depressive disorder, single episode, unspecified; F12.90 Cannabis use, unspecified, uncomplicated; F41.9 Anxiety disorder, unspecified; M96.1 Postlaminectomy syndrome, not elsewhere classified; M51.16 Intervertebral disc disorders with radiculopathy, lumbar region; G47.00 Insomnia, unspecified; F17.210 Nicotine dependence, cigarettes, uncomplicated; Z98.1 Arthrodesis status